=== PATIENT | male | born 1965 | race Caucasian/White ===

== ENCOUNTER 2017-10-10 15:07 | Emergency (ER) | payer BC ==
[~2017-10-10] VITALS: Ht 182.9 cm; Wt 131.1 kg
[2017-10-10 15:13] VITALS: BP_SYST 138
[2017-10-10] MEDS ORDERED: NACL 0.9% 1,000 ML IV ONE (15:45)
[2017-10-10] MEDS ORDERED: fentaNYL CITRATE/PF 100 MCG/2 ML AMP IVP ONE (15:45)
[2017-10-10] MEDS ORDERED: VANCOMYCIN HCL 1,000 MG in NS 250 ML IV ONE (15:45)
[2017-10-10] MEDS ORDERED: VANCOMYCIN HCL 1000 MG/VIAL IV ONE (16:12)
[2017-10-10 16:21] LABS: BASOPHILS # (AUTO) 0.2 K/uL (0.0-0.2); BASOPHILS % (AUTO) 1.8 % (0.0-2.0); EOSINOPHILS # (AUTO) 0.3 K/uL (0.0-0.4); HEMATOCRIT 46.6 % (36-54); HEMOGLOBIN 15.5 g/dL (14.0-18.0); LYMPHOCYTES # (AUTO) 1.2 K/uL (1.0-5.5); LYMPHOCYTES % (AUTO) 8.5 % (20.5-51.5); MEAN CORPUSCULAR HEMOGLOBIN 30 pg (27-31); MEAN CORPUSCULAR HGB CONC 33 % (32-36); MEAN CORPUSCULAR VOLUME 90 fL (79.0-98.0); MONOCYTES # (AUTO) 0.5 K/uL (0.0-1.0); NEUTROPHILS # (AUTO) 11.5 K/uL (1.8-7.7); NEUTROPHILS % (AUTO) 83.7 % (40.0-70.0); PLATELET COUNT (AUTO) 167 K/uL (130-430); RED BLOOD CELL COUNT(AUTO) 5.19 MIL/uL (4.2-6.2); RED CELL DISTRIBUTION WIDTH 13.1 % (9.0-15.0); WHITE BLOOD COUNT (AUTO) 13.7 K/uL (4.8-10.8)
[2017-10-10 16:28] LABS: CALCIUM 8.7 mg/dL (8.4-11.0); CREATININE 1.22 mg/dL (0.55-1.30)
[2017-10-10 16:30] LABS: INR 0.9 (0.80-1.20); PROTHROMBIN TIME 9.3 SECS (9.5-12.5)
[2017-10-10 16:32] LABS: ALBUMIN 3.5 g/dL (3.4-4.8); TOTAL BILIRUBIN 0.4 mg/dL (0.0-1.0)
[2017-10-10] MEDS ORDERED: LIDOCAINE/EPI 1% 1:100000 20 ML VIAL INJ ONE (17:04)
[2017-10-10 18:59] VITALS: BP_SYST 138
== END 2017-10-10 18:59 | disposition home or self-care (01) ==
LOC: SED 15:07
DX: L02.212 Cutaneous abscess of back [any part, except buttock and flank] (principal); E66.8 Other obesity; Z68.39 Body mass index [BMI] 39.0-39.9, adult
CPT/HCPCS: 10060; 36415; 71045; 80053; 83605; 85025; 85610; 85730; 87040; 93005; 96365; 96366; 99285; J3010; J3370; J7030; J7050

== ENCOUNTER 2018-02-11 20:50 | Inpatient (IN) | payer BC ==
[~2018-02-11] VITALS: Ht 182.9 cm; Wt 130.6 kg
[2018-02-11 20:52] VITALS: BP_SYST 128
--- NOTE | 2018-02-11 21:04 | NUR ---
Placed in room 02 . Placed on rock star, blood pressure machine and pulse oximeter. To gown for exam. Side rails up.
--- NOTE | 2018-02-11 21:10 | NUR ---
Pt came in [facility] with a complaint of non radiating chest pain 6/10, No headache, shortness of breath noted. Red eye noted on the right. No other complaint at this time. No allergies to medication noted. Safety precaution observed, placed to cardiac care unit nurse, will continue to monitor Pt.
--- NOTE | 2018-02-11 21:10 | NUR ---
wrong user input Pt came in [facility] with a complaint of non radiating chest pain 6/10, No headache, shortness of breath noted. Red eye noted on the right. No other complaint at this time. No allergies to medication noted. Safety precaution observed, placed to nurse monitoring, will continue to monitor Pt.
[2018-02-11 21:29] LABS: BASOPHILS # (AUTO) 0.1 K/uL (0.0-0.2); BASOPHILS % (AUTO) 0.5 % (0.0-2.0); EOSINOPHILS # (AUTO) 0.2 K/uL (0.0-0.4); EOSINOPHILS % (AUTO) 1.9 % (0.0-4.0); HEMATOCRIT 48.3 % (36-54); HEMOGLOBIN 15.5 g/dL (14.0-18.0); LYMPHOCYTES # (AUTO) 2.7 K/uL (1.0-5.5); LYMPHOCYTES % (AUTO) 22.1 % (20.5-51.5); MEAN CORPUSCULAR HEMOGLOBIN 28 pg (27-31); MEAN CORPUSCULAR HGB CONC 32 % (32-36); MEAN CORPUSCULAR VOLUME 88 fL (79.0-98.0); MONOCYTES # (AUTO) 0.6 K/uL (0.0-1.0); NEUTROPHILS # (AUTO) 8.8 K/uL (1.8-7.7); NEUTROPHILS % (AUTO) 70.5 % (40.0-70.0); PLATELET COUNT (AUTO) 272 K/uL (130-430); RED BLOOD CELL COUNT(AUTO) 5.49 MIL/uL (4.2-6.2); RED CELL DISTRIBUTION WIDTH 13.5 % (9.0-15.0); WHITE BLOOD COUNT (AUTO) 12.4 K/uL (4.8-10.8)
--- NOTE | 2018-02-11 21:30 | NUR ---
ER MD BARTON AT BEDSIDE FOR MEDICAL EVALUATION.
--- NOTE | 2018-02-11 21:35 | NUR ---
# 20 gauge angiocath placed to RAC. Use of asceptic technique. Opsite placed over site. Blood return noted. Blood for lab drawn from site. Flushed with 10 cc of normal saline. No evidence of infiltration noted. Patient tolerated well.
[2018-02-11 21:43] LABS: ANION GAP 9 (5-15); CALCIUM 8.8 mg/dL (8.4-11.0); CHLORIDE 102 mmol/L (98-107); CREATININE 1.17 mg/dL (0.55-1.30); GLUCOSE 110 mg/dL (70-99); POTASSIUM 3.6 mmol/L (3.5-5.1); SODIUM SERUM 141 mmol/L (136-145); UREA NITROGEN, BLOOD 21 mg/dL (8-21)
[2018-02-11 21:51] LABS: ALANINE AMINOTRANSFERASE 46 U/L (12-78); ALBUMIN 2.9 g/dL (3.4-4.8); ASPARTATE AMINOTRANSFERASE 24 U/L (10-37); TOTAL BILIRUBIN 0.3 mg/dL (0.0-1.0)
[2018-02-11 21:53] LABS: GFR AFRICAN AMERICAN 84 mL/min (>90)
[2018-02-11 21:54] LABS: INR 0.9 (0.80-1.20); PROTHROMBIN TIME 9.1 SECS (9.5-12.5)
[2018-02-11 22:20] LABS: BILIRUBIN,URINE NEGATIVE (NEGATIVE); BLOOD, URINE NEGATIVE (NEGATIVE); CLARITY/URINE CLEAR (CLEAR); COLOR,URINE YELLOW (YELLOW); GLUCOSE,URINE NEGATIVE (NEGATIVE); KETONES,URINE NEGATIVE (NEGATIVE); LEUKOCYTE ESTERASE ,URINE NEGATIVE (NEGATIVE); NITRITE, URINE NEGATIVE (NEGATIVE); PH,URINE 5.5 (5.0-8.0); PROTEIN URINE NEGATIVE (NEGATIVE); UROBILINOGEN,URINE 0.2 (0.2-1.0)
--- NOTE | 2018-02-11 23:00 | NUR ---
Pt in bed, no acute distress at this time. Will continue to monitor Pt.
[2018-02-11] MEDS ORDERED: ONDANSETRON HCL 4 MG/2 ML VIAL IVP ONE (23:15)
[2018-02-11] MEDS ORDERED: KETOROLAC TROMETHAMINE 30 MG VIAL IVP ONE (23:15)
[2018-02-11] MEDS ORDERED: HYDROmorphone 1 MG INJ. 1 MG/ML AMPUL IVP ONE (23:15)
[2018-02-11] MEDS ORDERED: NACL 0.9% 1,000 ML IV ONE (23:15)
[2018-02-11] MEDS ORDERED: MORPHINE 4 MG/ML INJ. SYRINGE IVP ONE (23:30)
--- NOTE | 2018-02-12 | NUR ---
Pt in bed, no acute distress at this tiem. Will continue to monitor Pt.
--- NOTE | 2018-02-12 00:19 | NUR ---
[facility] DOCTOR ARIK IS TINNER HELPER
[2018-02-12] MEDS ORDERED: CIPROFLOXACIN HCL 0.3% EYE DRP 2.5 ML DROPS OP ONE (00:30)
[2018-02-12] MEDS ORDERED: ASPIRIN 325 MG TABLET PO ONE (00:30)
[2018-02-12] MEDS ORDERED: LEVO5TAB13 PO (01:39)
[2018-02-12] MEDS ORDERED: MONT10TA22 (01:39)
[2018-02-12] MEDS ORDERED: VIS50 PO (01:39)
[2018-02-12] MEDS ORDERED: GENTAMICIN SULFATE 0.3% OPHT. 5 ML DROPS OP ONE (01:45)
--- NOTE | 2018-02-12 02:30 | NUR ---
Patient will be admitted to care of Dr Ku. Admitted to telemetry unit. Will go to room 135. Belongings list completed. Summary report printed. Report will be given at bedside.
--- NOTE | 2018-02-12 02:35 | NUR ---
Admission Note Received patient from ER with diagnosis of chest pain. Initial Plan of Care discussed-patient verbalized understanding. Oriented to room, call light, pain management and safety.
[2018-02-12 02:48] VITALS: BP_SYST 98
--- NOTE | 2018-02-12 04:52 | NUR ---
Patient resting in bed with eyes closed. Breathing unlabored and even on room air. No signs of distress, no needs at this time. Fall and safety precautions in place. Bed in lowest position, brake on, call light within reach. Will continue to monitor.
--- NOTE | 2018-02-12 06:56 | NUR ---
CLOSING NOTE Endorsed cares to day shift nurse. Patient resting in bed with eyes closed. Breathing unlabored and even on room air. No signs of distress, no needs at this time. Fall and safety precautions in place. Bed in lowest position, brake on, call light within reach.
[2018-02-12] MEDS ORDERED: HYDROcodone/ACETAMIN 5-325 MG TAB (NORCO/ VICODIN) PO PRN (07:30)
[2018-02-12] MEDS ORDERED: ONDANSETRON HCL 4 MG/2 ML VIAL IVP PRN (07:30)
[2018-02-12] MEDS ORDERED: ALBUTEROL SULFATE 0.083% 2.5 MG/3 ML VIAL.NEB INH PRN (07:30)
--- NOTE | 2018-02-12 07:31 | NUR ---
CONSULTATION PAGED/CALLED Reason for Consultation: [] CHEST PAIN Person Who was Notified: [] FIELD ATTENDANT # [id number] Consulting Physician: [] DR AMAYA Investment Banking Analyst Specialty: [] CARDIOLOGY Ordering Physician: [] DR BARLOW
[2018-02-12 07:50] VITALS: BP_SYST 92
--- NOTE | 2018-02-12 08:00 | NUR ---
Note Pt sitting up in bed eating his breakfast. No SOB/resp distress or pain/discomfort noted at this time. Pt's IV in right AC intact and patent at this time. No needs noted. Call light within reach. Tele unit attached and intact at this time.
[2018-02-12] MEDS ORDERED: ASPIRIN 81 MG TAB.CHEW PO SCH (09:00)
[2018-02-12 09:05] LABS: CHOLESTEROL 159 mg/dL (<200); HDL CHOLESTEROL 57 mg/dL (>45); LDL CHOLESTEROL 94 mg/dL (<100); TRIGLYCERIDES 95 mg/dL (30-150)
[2018-02-12 11:09] VITALS: BP_SYST 125
--- NOTE | 2018-02-12 11:10 | NUR ---
Note Dr Burnette at bedside doing rounds at this time. Questions/concerns were answered at this time. Pt denies any needs at this time. Call light within reach. IV in right AC intact and patent. No needs noted. Call light within reach.
[2018-02-12] MEDS ORDERED: methylPREDNISolone SOD SUCC/PF 62.5 MG/ML VIAL IVP ONE (11:15)
[2018-02-12] MEDS ORDERED: ALBMDI INH (11:23)
[2018-02-12] MEDS ORDERED: medrol pack PO (11:24)
[2018-02-12] MEDS ORDERED: OMEP20TA20 PO (11:24)
--- NOTE | 2018-02-12 11:39 | NUR ---
Nutrition Update Elias Scale 18 noted. Pt admitted for chest pain. Diet: cardiac BMI: 39.1 kg/m2 RD to follow per nutrition care standards.
--- NOTE | 2018-02-12 13:40 | NUR ---
Seen and examined by the heat and frost insulator helper Dr. MAE and said OK to discharge patient home today.
--- NOTE | 2018-02-12 13:49 | NUR ---
Discharge Planning: DCP faxed pt order to Halle at [facility] (f [phone] p [phone]).
[2018-02-12 14:23] VITALS: BP_SYST 123
--- NOTE | 2018-02-12 14:50 | NUR ---
NOTE Pt's IV was dc'd from right AC - cath intact. No swelling/redness/bleeding/drainage noted at this time. Pt was given discharge instructions and prescription. Question/concerns were answered at this time. No SOB/resp distress or chest/abdominal pain/discomfort noted all shift. Pt's tele unit was dc'd and returned to technical sales consultant at this time as well. No needs noted. Pt waiting for his to bring him a shirt from home. Pt has his pants.socks and shoes on at this time. Pt stable. Call light within reach.
--- NOTE | 2018-02-12 15:25 | NUR ---
Note Pt off the floor dressed in street clothes with discharge paperwork/prescription. Pt stable. Denies any abdominal pain/discomfort or chest pain.
[2018-02-12] MEDS ORDERED: MONTELUKAST 10 MG TABLET PO SCH (18:00)
[2018-02-12] MEDS ORDERED: methylPREDNISolone SOD SUCC/PF 62.5 MG/ML VIAL IVP SCH (22:00)
== END 2018-02-12 15:25 | disposition home or self-care (01) | DRG 313 ==
LOC: SED 20:50 → STU 02-12 01:42
PROVIDERS: ADMIT Internal Medicine; ATTEND Internal Medicine
DX: R07.89 Other chest pain (principal); E78.5 Hyperlipidemia, unspecified; H10.9 Unspecified conjunctivitis; R10.9 Unspecified abdominal pain; Z88.8 Allergy status to other drugs, medicaments and biological substances; Z79.899 Other long term (current) drug therapy
CPT/HCPCS: 36415; 71045; 76700-TC; 80053; 80061; 81003; 83690-TC; 83880; 84484; 85025; 85610-TC; 93005; 93306; 96361; 96374; 96375; 99285; G0378; J1170; J1885; J2270; J2405; J2930; J7030

== ENCOUNTER 2018-07-08 13:34 | Outpatient (CLI) | payer BC ==
[~2018-07-08 13:34] MED LIST: ALBMDI INH; LEVO5TAB13 PO; MONT10TA22; OMEP20TA20 PO; VIS50 PO; medrol pack PO
[2018-07-08] MEDS ORDERED: BARIUM SULFATE 135 ML SUSP.RECON (E-Z-HD) PO ONE (14:17)
== END 2018-07-08 18:08 | disposition home or self-care (01) ==
LOC: SRD 13:34
PROVIDERS: ATTEND Internal Medicine
DX: R13.0 Aphagia (principal)
CPT/HCPCS: 74230; 92611-GN